=== PATIENT | male | born 1990 | race Caucasian/White ===

== ENCOUNTER 2016-10-01 17:35 | Emergency (ER) | payer OTHER | END 2016-10-01 20:25 | disposition home or self-care (01) | DX: N50.812 Left testicular pain (principal); N50.811 Right testicular pain; N43.3 Hydrocele, unspecified ==

== ENCOUNTER 2016-10-23 11:46 | Emergency (ER) | payer OTHER ==
[2016-10-23] MEDS ORDERED: cefTRIAXone 250 MG VIAL IM STA (12:42)
[2016-10-23] MEDS ORDERED: AZITHROMYCIN 250 MG TABLET PO STA (12:42)
[2016-10-23] MEDS ORDERED: cefTRIAXone 250 MG VIAL ONE (12:49)
[2016-10-23] MEDS ORDERED: AZITHROMYCIN 250 MG TABLET PO ONE (12:49)
[2016-10-23] MEDS ORDERED: LIDOCAINE-MPF 1% 5 ML VIAL ONE (12:49)
== END 2016-10-23 14:03 | disposition home or self-care (01) ==
DX: Z11.3 Encounter for screening for infections with a predominantly sexual mode of transmission (principal)
CPT/HCPCS: 81003; 87210; 87491; 87591; 96372; 99283; A9270